=== PATIENT | male | born 1995 | race African-American/Black ===

== ENCOUNTER 2022-11-04 21:36 | Emergency (ER) | payer SELFPAY ==
[~2022-11-04] VITALS: Ht 182.9 cm; Wt 81.8 kg
[2022-11-04 21:53] VITALS: TEMP 98.3
[2022-11-04 22:06] VITALS: BP 115/75; PULSE 112; RESP 18
[2022-11-04 23:12] LABS: PH,URINE DRUG SCREEN 5.5 (5.0-8.0)
[2022-11-04 23:19] LABS: AMPHET/METH SCREEN,URINE POSITIVE (NEGATIVE); BARBITURATE SCREEN, URINE NEGATIVE (NEGATIVE); BENZODIAZEPINES SCREEN,URINE NEGATIVE (NEGATIVE); CANNABINOID SCREEN,URINE POSITIVE (NEGATIVE); COCAINE SCREEN,URINE NEGATIVE (NEGATIVE); METHADONE SCREEN, URINE NEGATIVE (NEGATIVE); OPIATE SCREEN,URINE NEGATIVE (NEGATIVE); PHENCYCLIDINE SCREEN,URINE NEGATIVE (NEGATIVE)
[2022-11-04 23:22] LABS: ALCOHOL, URINE DRUG SCREEN NEGATIVE (NEGATIVE)
== END 2022-11-04 23:36 | disposition home or self-care (01) ==
LOC: EMS 21:37
DX: F32.A Depression, unspecified (principal); F12.90 Cannabis use, unspecified, uncomplicated; F15.90 Other stimulant use, unspecified, uncomplicated; F14.90 Cocaine use, unspecified, uncomplicated; F17.210 Nicotine dependence, cigarettes, uncomplicated
CPT/HCPCS: 80307; 99283

== ENCOUNTER 2022-11-05 01:53 | Emergency (ER) | payer SELFPAY ==
[~2022-11-05] VITALS: Ht 182.9 cm; Wt 72.7 kg
[2022-11-05 02:07] VITALS: TEMP 97.5
[2022-11-05 02:21] VITALS: BP 124/79; PULSE 103; RESP 16
[2022-11-05] MEDS ORDERED: OLANZapine 5 MG RAPDIS TABLET PO ONE (02:30)
== END 2022-11-05 03:22 | disposition home or self-care (01) ==
LOC: EMS 01:54
DX: F32.A Depression, unspecified (principal); F17.210 Nicotine dependence, cigarettes, uncomplicated; F15.90 Other stimulant use, unspecified, uncomplicated; F12.90 Cannabis use, unspecified, uncomplicated; F14.90 Cocaine use, unspecified, uncomplicated
CPT/HCPCS: 99283